=== PATIENT | female | born 1935 | race Caucasian/White ===

== ENCOUNTER 2019-09-09 20:14 | Emergency (ER) | payer MEDICARE, BC ==
[~2019-09-09] VITALS: Ht 172.7 cm; Wt 74.5 kg
[2019-09-09] MEDS ORDERED: ASPIR LOW81 MG PO (20:31)
[2019-09-09] MEDS ORDERED: CITALOPRAM40 MG PO (20:31)
[2019-09-09] MEDS ORDERED: VITAMIN D31000 I1 PO (20:32)
[2019-09-09] MEDS ORDERED: NAMENDA10 MG PO (20:32)
[2019-09-09] MEDS ORDERED: TYLENOL ARTHRI650 M2 PO ×2 (20:33→20:37)
[2019-09-09] MEDS ORDERED: COLACE100 M1 PO ×2 (20:33→20:36)
[2019-09-09] MEDS ORDERED: ATIVAN0.5 MG PO (20:35)
[2019-09-09] MEDS ORDERED: ARICEPT5 M1 PO (20:35)
[2019-09-09] MEDS ORDERED: SYNTHROID25 MCG PO (20:35)
[2019-09-09] MEDS ORDERED: MOBIC7.5 MG PO (20:36)
[2019-09-09] MEDS ORDERED: PROAIR HFA0.09 MG/AC IH (20:37)
[2019-09-09] MEDS ORDERED: MAALOX MAXIMUM355 ML PO (20:38)
[2019-09-09] MEDS ORDERED: GOOD SENSE400 MG/5 M PO (20:39)
[2019-09-09] MEDS ORDERED: TYLENOL325 M1 PO (20:40)
[2019-09-09] MEDS ORDERED: KAOPECTATE262 MG/15 PO (20:41)
[2019-09-09 21:05] LABS: EOS # 0.1 (0.04-0.40); HEMATOCRIT 38.9 % (37.0-47.0); HEMOGLOBIN 11.9 g/dL (12.5-16.0); LYMPH# 1.6 (1.50-4.00); MEAN CELL VOLUME 84 fl (78-100); MEAN CORPUSCULAR HEMOGLOBIN 26 pg (27-31); MEAN CORPUSCULAR HGB CONC 31 g/dL (33-37); MEAN PLATELET VOLUME 10.4 fl (7.4-10.4); MONO # 0.6 (0.20-0.80); NEU # 8.5 (1.40-6.50); PLATELET COUNT 299 K/mm3 (130-400); RED BLOOD COUNT 4.64 M/mm3 (4.10-5.30); RED CELL DISTRIBUTION WIDTH 14.9 % (11.5-14.5); WHITE BLOOD COUNT 10.9 K/mm3 (4.8-10.8)
[2019-09-09 21:11] LABS: URINE APPEARANCE HAZY; URINE COLOR YELLOW
[2019-09-09 21:12] LABS: URINE BILIRUBIN NEGATIVE (NEGATIVE); URINE BLOOD TRACE (NEGATIVE); URINE GLUCOSE NEGATIVE (NEGATIVE); URINE KETONE NEGATIVE (NEGATIVE); URINE LEUKOCYTE ESTERASE 2+ (NEGATIVE); URINE NITRATE POSITIVE (NEGATIVE); URINE PROTEIN(semi-quant) TRACE mg/dL (NEGATIVE); URINE UROBILINOGEN NORMAL (NORMAL); URINE WBC 31-50 /hpf (0-3)
[2019-09-09 21:15] LABS: POTASSIUM 3.8 mmol/L (3.5-5.1)
[2019-09-09 21:16] LABS: CALCIUM 8.8 mg/dL (8.3-10.5)
[2019-09-09] MEDS ORDERED: CEFDINIR300 MG PO (22:04)
[2019-09-09 23:08] VITALS: BP 144/82
== END 2019-09-09 23:08 | disposition home or self-care (01) ==
LOC: ED 20:14
PROVIDERS: Nurse Practitioner Family
DX: S01.511A Laceration without foreign body of lip, initial encounter (principal); M25.532 Pain in left wrist; E86.0 Dehydration; E07.9 Disorder of thyroid, unspecified; F41.9 Anxiety disorder, unspecified; F32.9 Major depressive disorder, single episode, unspecified; E03.9 Hypothyroidism, unspecified; F03.90 Unspecified dementia, unspecified severity, without behavioral disturbance, psychotic disturbance, mood disturbance, and anxiety; Z79.82 Long term (current) use of aspirin; W19.XXXA Unspecified fall, initial encounter; Y92.001 Dining room of unspecified non-institutional (private) residence as the place of occurrence of the external cause
CPT/HCPCS: A4216; J0696; J7030

== ENCOUNTER 2019-11-27 08:47 | Emergency (ER) | payer MEDICARE, BC ==
[~2019-11-27] VITALS: Ht 157.5 cm; Wt 62.8 kg
[~2019-11-27 08:47] MED LIST: ARICEPT5 M1 PO; ASPIR LOW81 MG PO; ATIVAN0.5 MG PO; CEFDINIR300 MG PO; CITALOPRAM40 MG PO; COLACE100 M1 PO; GOOD SENSE400 MG/5 M PO; KAOPECTATE262 MG/15 PO; MAALOX MAXIMUM355 ML PO; MOBIC7.5 MG PO; NAMENDA10 MG PO; PROAIR HFA0.09 MG/AC IH; SYNTHROID25 MCG PO; TYLENOL ARTHRI650 M2 PO; TYLENOL325 M1 PO; VITAMIN D31000 I1 PO
[2019-11-27] MEDS ORDERED: ASPIRIN 81M81 MG/TA2 PO (09:02)
[2019-11-27 10:47] VITALS: BP 160/79
== END 2019-11-27 12:00 | disposition short-term general hospital (02) ==
LOC: ED 08:47
DX: S72.001A Fracture of unspecified part of neck of right femur, initial encounter for closed fracture (principal); F03.90 Unspecified dementia, unspecified severity, without behavioral disturbance, psychotic disturbance, mood disturbance, and anxiety; E03.9 Hypothyroidism, unspecified; Z79.82 Long term (current) use of aspirin; W19.XXXA Unspecified fall, initial encounter; Y92.129 Unspecified place in nursing home as the place of occurrence of the external cause

== ENCOUNTER 2019-11-30 13:06 | Inpatient (IN) | payer MEDICARE, BC ==
[~2019-11-30] VITALS: Ht 167.6 cm; Wt 59.5 kg
[~2019-11-30 13:06] MED LIST changes: +ASPIRIN 81M81 MG/TA2 PO; +TYLENOL 8 HOUR650 M1 PO; -TYLENOL325 M1 PO; -VITAMIN D31000 I1 PO; +VITAMIN D325 MC7 PO
[2019-11-30 14:11] VITALS: BP 111/78
[2019-11-30] MEDS ORDERED: ECOTRIN325 M1 PO (14:59)
[2019-11-30 16:13] VITALS: BP 111/78
[2019-11-30 16:14] VITALS: BP 111/78
[2019-11-30 18:32] VITALS: BP 129/55
[2019-11-30 19:53] LABS: URINE APPEARANCE HAZY; URINE BILIRUBIN 1+ (NEGATIVE); URINE BLOOD TRACE (NEGATIVE); URINE COLOR YELLOW; URINE GLUCOSE NEGATIVE (NEGATIVE); URINE KETONE 2+ (NEGATIVE); URINE NITRATE NEGATIVE (NEGATIVE); URINE PROTEIN(semi-quant) TRACE mg/dL (NEGATIVE); URINE UROBILINOGEN NORMAL (NORMAL)
[2019-11-30 19:54] LABS: URINE LEUKOCYTE ESTERASE TRACE (NEGATIVE); URINE MUCUS PRESENT (NOT PRESENT)
[2019-12-01 05:12] VITALS: BP 161/60
[2019-12-01 06:34] LABS: EOS # 0.2 (0.04-0.40); EOS % 2.9 % (1.0-5.0); HEMATOCRIT 27.8 % (37.0-47.0); HEMOGLOBIN 8.4 g/dL (12.5-16.0); LYMPH# 0.8 (1.50-4.00); MEAN CELL VOLUME 81 fl (78-100); MEAN CORPUSCULAR HEMOGLOBIN 25 pg (27-31); MEAN CORPUSCULAR HGB CONC 30 g/dL (33-37); MONO # 0.5 (0.20-0.80); PLATELET COUNT 229 K/mm3 (130-400); RED BLOOD COUNT 3.42 M/mm3 (4.10-5.30); RED CELL DISTRIBUTION WIDTH 15.1 % (11.5-14.5); WHITE BLOOD COUNT 6.6 K/mm3 (4.8-10.8)
[2019-12-01 06:36] LABS: ALBUMIN 3.2 g/dL (3.4-4.8); POTASSIUM 3.5 mmol/L (3.5-5.1)
[2019-12-01 06:37] LABS: CALCIUM 8.4 mg/dL (8.3-10.5)
[2019-12-01 06:38] LABS: TOTAL PROTEIN 5.7 g/dL (6.2-8.1)
[2019-12-01 06:40] LABS: TOTAL BILIRUBIN 0.5 mg/dL (0.2-1.2)
[2019-12-01 15:57] VITALS: BP 123/57
[2019-12-02 05:32] VITALS: BP 164/53
[2019-12-02 18:19] VITALS: BP 100/63
[2019-12-03 05:17] VITALS: BP 156/67
[2019-12-03 10:12] VITALS: BP 108/57
[2019-12-03 18:10] VITALS: BP 110/85
[2019-12-03 18:53] LABS: TRANSFERRIN 182 mg/dL (192-382)
[2019-12-04 05:28] VITALS: BP 112/64
[2019-12-04 18:00] VITALS: BP 139/67
[2019-12-05 05:52] VITALS: BP 154/63
[2019-12-05 17:30] VITALS: BP 180/66
[2019-12-05 19:43] VITALS: BP 180/66
[2019-12-06 05:20] VITALS: BP 128/64
[2019-12-06 06:37] LABS: BASO # 0.1 (0.02-0.10); EOS # 0.3 (0.04-0.40); EOS % 4.1 % (1.0-5.0); HEMATOCRIT 27.8 % (37.0-47.0); HEMOGLOBIN 8.1 g/dL (12.5-16.0); LYMPH# 1.8 (1.50-4.00); MEAN CELL VOLUME 84 fl (78-100); MEAN PLATELET VOLUME 9.8 fl (7.4-10.4); MONO # 0.6 (0.20-0.80); NEU # 3.8 (1.40-6.50); PLATELET COUNT 358 K/mm3 (130-400); RED BLOOD COUNT 3.33 M/mm3 (4.10-5.30); WHITE BLOOD COUNT 6.6 K/mm3 (4.8-10.8)
[2019-12-06 07:08] LABS: MEAN CORPUSCULAR HEMOGLOBIN 24 pg (27-31); MEAN CORPUSCULAR HGB CONC 29 g/dL (33-37)
[2019-12-06 07:58] LABS: POTASSIUM 3.8 mmol/L (3.5-5.1)
[2019-12-06 07:59] LABS: CALCIUM 8.7 mg/dL (8.3-10.5)
[2019-12-06 13:15] LABS: URINE APPEARANCE CLEAR; URINE BILIRUBIN NEGATIVE (NEGATIVE); URINE BLOOD NEGATIVE (NEGATIVE); URINE COLOR YELLOW; URINE GLUCOSE NEGATIVE (NEGATIVE); URINE KETONE SMALL (NEGATIVE); URINE NITRATE NEGATIVE (NEGATIVE); URINE PROTEIN(semi-quant) TRACE mg/dL (NEGATIVE); URINE UROBILINOGEN NORMAL (NORMAL)
[2019-12-06 13:16] LABS: URINE LEUKOCYTE ESTERASE NEGATIVE (NEGATIVE); URINE WBC 0-1 /hpf (0-3)
[2019-12-06 18:37] VITALS: BP 109/56
[2019-12-07 06:02] VITALS: BP 120/61
[2019-12-07 17:55] VITALS: BP 139/72
[2019-12-07] MEDS ORDERED: ATIVAN0.5 MG PO (19:26)
[2019-12-07] MEDS ORDERED: MOBIC7.5 MG PO (19:28)
[2019-12-07] MEDS ORDERED: ASPIRIN E.C. 8181 MG (19:30)
[2019-12-07] MEDS ORDERED: TYLENOL ARTHRI650 M2 PO (19:31)
[2019-12-07] MEDS ORDERED: COLACE100 M1 PO (19:32)
[2019-12-07] MEDS ORDERED: PROAIR DIGIHAL90 MCG IH (19:34)
[2019-12-07] MEDS ORDERED: TOPCARE ARTHRI650 MG PO (19:35)
[2019-12-07] MEDS ORDERED: MAALOX MAXIMUM355 ML PO (19:37)
[2019-12-07] MEDS ORDERED: GOOD NEIGH1200 MG/15 PO (19:39)
[2019-12-07] MEDS ORDERED: KAOPECTATE262 MG/15 PO (19:43)
[2019-12-08 05:53] VITALS: BP 129/66
[2019-12-08 18:00] VITALS: BP 110/50
[2019-12-09 05:59] VITALS: BP 132/76
[2019-12-09 17:10] VITALS: BP 137/63
[2019-12-10 05:47] VITALS: BP 156/50
[2019-12-10 16:28] VITALS: BP 133/63
[2019-12-11 06:11] VITALS: BP 169/75
[2019-12-11 18:26] VITALS: BP 146/67
[2019-12-12 05:59] VITALS: BP 167/63
[2019-12-12 17:34] VITALS: BP 108/61
[2019-12-13 05:34] VITALS: BP 124/67
[2019-12-13 08:27] LABS: EOS # 0.2 (0.04-0.40); EOS % 2.8 % (1.0-5.0); HEMATOCRIT 33.1 % (37.0-47.0); HEMOGLOBIN 9.8 g/dL (12.5-16.0); LYMPH# 2.5 (1.50-4.00); MEAN CELL VOLUME 82 fl (78-100); MEAN CORPUSCULAR HGB CONC 30 g/dL (33-37); MEAN PLATELET VOLUME 9.3 fl (7.4-10.4); MONO # 0.5 (0.20-0.80); NEU # 5.1 (1.40-6.50); RED BLOOD COUNT 4.03 M/mm3 (4.10-5.30); RED CELL DISTRIBUTION WIDTH 17.7 % (11.5-14.5); WHITE BLOOD COUNT 8.4 K/mm3 (4.8-10.8)
[2019-12-13 08:28] LABS: MEAN CORPUSCULAR HEMOGLOBIN 24 pg (27-31); PLATELET COUNT 590 K/mm3 (130-400)
[2019-12-13 08:34] LABS: ALBUMIN 3.7 g/dL (3.4-4.8)
[2019-12-13 08:35] LABS: POTASSIUM 4.2 mmol/L (3.5-5.1)
[2019-12-13 08:36] LABS: CALCIUM 9.1 mg/dL (8.3-10.5)
[2019-12-13 08:37] LABS: TOTAL PROTEIN 6.2 g/dL (6.2-8.1)
[2019-12-13 08:39] LABS: TOTAL BILIRUBIN 0.3 mg/dL (0.2-1.2)
[2019-12-13 08:43] LABS: MAGNESIUM 2.3 mg/dL (1.60-2.60)
[2019-12-13 18:12] VITALS: BP 108/56
[2019-12-14 06:07] VITALS: BP 133/60
[2019-12-14 15:40] VITALS: BP 128/69
[2019-12-15 05:30] VITALS: BP 133/78
[2019-12-15 16:31] VITALS: BP 120/74
[2019-12-16 04:46] VITALS: BP 151/71
[2019-12-16 18:15] VITALS: BP 154/70
[2019-12-17 06:00] VITALS: BP 174/65
[2019-12-17 13:05] LABS: BASO # 0.1 (0.02-0.10); EOS # 0.2 (0.04-0.40); EOS % 2.1 % (1.0-5.0); HEMATOCRIT 36.2 % (37.0-47.0); HEMOGLOBIN 10.6 g/dL (12.5-16.0); LYMPH# 1.8 (1.50-4.00); MEAN CELL VOLUME 84 fl (78-100); MEAN CORPUSCULAR HEMOGLOBIN 25 pg (27-31); MEAN PLATELET VOLUME 9.4 fl (7.4-10.4); MONO # 0.6 (0.20-0.80); NEU # 6.1 (1.40-6.50); RED BLOOD COUNT 4.32 M/mm3 (4.10-5.30); WHITE BLOOD COUNT 8.8 K/mm3 (4.8-10.8)
[2019-12-17 13:14] LABS: ALBUMIN 3.8 g/dL (3.4-4.8)
[2019-12-17 13:15] LABS: POTASSIUM 4.1 mmol/L (3.5-5.1)
[2019-12-17 13:16] LABS: CALCIUM 8.9 mg/dL (8.3-10.5)
[2019-12-17 13:17] LABS: TOTAL PROTEIN 6.6 g/dL (6.2-8.1)
[2019-12-17 13:19] LABS: TOTAL BILIRUBIN 0.3 mg/dL (0.2-1.2)
[2019-12-17 13:25] LABS: MEAN CORPUSCULAR HGB CONC 29 g/dL (33-37); PLATELET COUNT 579 K/mm3 (130-400); RED CELL DISTRIBUTION WIDTH 19.1 % (11.5-14.5)
[2019-12-17 16:16] VITALS: BP 105/66
[2019-12-18 06:07] VITALS: BP 128/66
[2019-12-18 18:12] VITALS: BP 117/68
[2019-12-19 05:49] VITALS: BP 154/76
[2019-12-19 18:04] VITALS: BP 140/81
[2019-12-20 06:32] VITALS: BP 152/71
[2019-12-20 16:13] VITALS: BP 130/73
[2019-12-21 06:01] VITALS: BP 156/77
[2019-12-21 17:24] VITALS: BP 156/72
[2019-12-22 06:19] VITALS: BP 154/71
[2019-12-22 16:24] VITALS: BP 159/84
[2019-12-23 05:20] VITALS: BP 162/79
[2019-12-23 17:40] VITALS: BP 110/61
[2019-12-24 05:25] VITALS: BP 137/72
[2019-12-24 17:07] VITALS: BP 139/82
[2019-12-25 05:55] VITALS: BP 159/76
[2019-12-25 18:18] VITALS: BP 110/61
[2019-12-26 05:26] VITALS: BP 136/73
[2019-12-26 18:34] VITALS: BP 124/83
[2019-12-27 05:45] VITALS: BP 134/82
[2019-12-27 17:20] VITALS: BP 128/79
[2019-12-28 05:47] VITALS: BP 166/60
[2019-12-28 18:17] VITALS: BP 135/73
[2019-12-29 05:20] VITALS: BP 150/76
[2019-12-29 05:41] LABS: EOS # 0.1 (0.04-0.40); EOS % 1.3 % (1.0-5.0); HEMATOCRIT 36.9 % (37.0-47.0); MEAN CELL VOLUME 87 fl (78-100); MEAN CORPUSCULAR HEMOGLOBIN 26 pg (27-31); MEAN CORPUSCULAR HGB CONC 30 g/dL (33-37); MEAN PLATELET VOLUME 9.8 fl (7.4-10.4); MONO # 0.5 (0.20-0.80); NEU # 4.5 (1.40-6.50); PLATELET COUNT 229 K/mm3 (130-400); RED BLOOD COUNT 4.24 M/mm3 (4.10-5.30); WHITE BLOOD COUNT 7.2 K/mm3 (4.8-10.8)
[2019-12-29 06:20] LABS: RED CELL DISTRIBUTION WIDTH 21.1 % (11.5-14.5)
[2019-12-29 18:01] VITALS: BP 129/70
[2019-12-30 05:40] VITALS: BP 155/77
[2019-12-30 18:05] VITALS: BP 157/67
[2019-12-31 05:25] VITALS: BP 160/77
[2019-12-31] MEDS ORDERED: PANTOPRAZOLE SO40 MG PO (11:35)
== END 2019-12-31 14:00 | disposition home or self-care (01) | DRG 560 ==
LOC: MED/SURG 13:06
PROVIDERS: Family Medicine; Internal Medicine; Nurse Practitioner; ADMIT Nurse Practitioner Family
DX: S72.001D Fracture of unspecified part of neck of right femur, subsequent encounter for closed fracture with routine healing (principal); E87.1 Hypo-osmolality and hyponatremia; N39.0 Urinary tract infection, site not specified; F32.9 Major depressive disorder, single episode, unspecified; D50.9 Iron deficiency anemia, unspecified; F03.90 Unspecified dementia, unspecified severity, without behavioral disturbance, psychotic disturbance, mood disturbance, and anxiety; E03.9 Hypothyroidism, unspecified; G47.34 Idiopathic sleep related nonobstructive alveolar hypoventilation; Z66 Do not resuscitate; R53.81 Other malaise; W19.XXXD Unspecified fall, subsequent encounter; Z20.828 Contact with and (suspected) exposure to other viral communicable diseases; Z79.82 Long term (current) use of aspirin; Z79.1 Long term (current) use of non-steroidal anti-inflammatories (NSAID); Z96.641 Presence of right artificial hip joint; Z87.891 Personal history of nicotine dependence
CPT/HCPCS: A4618

== ENCOUNTER → 2022-01-23 | Outpatient (CLI) | payer MEDICARE, BC ==
[~2022-01-23] MED LIST changes: +ASPIRIN E.C. 8181 MG; +ECOTRIN325 M1 PO; +GOOD NEIGH1200 MG/15 PO; +PANTOPRAZOLE SO40 MG PO; +PROAIR DIGIHAL90 MCG IH; +TOPCARE ARTHRI650 MG PO
== END ==
LOC: LAB 11:20
DX: Z01.89 Encounter for other specified special examinations (principal)